=== PATIENT | male | born 1970 | race Caucasian/White ===

== ENCOUNTER 2017-08-28 00:14 | Emergency (ER) | payer OTHER ==
[2017-08-28] MEDS ORDERED: PERCOCET 5/31 TABLET PO (02:17)
== END 2017-08-28 03:24 | disposition home or self-care (01) ==
LOC: TRA 00:14
DX: S82.831A Other fracture of upper and lower end of right fibula, initial encounter for closed fracture (principal); M79.605 Pain in left leg; V04.90XA Pedestrian on foot injured in collision with heavy transport vehicle or bus, unspecified whether traffic or nontraffic accident, initial encounter; Y92.410 Unspecified street and highway as the place of occurrence of the external cause; I10 Essential (primary) hypertension
CPT/HCPCS: 71046; 73130; 73590; 80048; 81003; 82150; 83690; 85025; 86850; 86900; 86901; 99281; 99285; G0480